=== PATIENT | female | born 1960 | race Caucasian/White ===

== ENCOUNTER → 2023-06-12 06:46 | Outpatient (REF) | payer BC, SELFPAY | LOC: WDC 06:46 | PROVIDERS: ATTENDING PHYSICIAN Nurse Practitioner Family | DX: Z12.31 Encounter for screening mammogram for malignant neoplasm of breast (principal) | CPT/HCPCS: 77063; 77067 ==

== ENCOUNTER → 2023-09-10 08:19 | Outpatient (REF) | payer BC, SELFPAY | LOC: RAD 08:19 | PROVIDERS: FAMILY PHYSICIAN Nurse Practitioner Family | DX: E05.20 Thyrotoxicosis with toxic multinodular goiter without thyrotoxic crisis or storm (principal); Z78.0 Asymptomatic menopausal state | CPT/HCPCS: 76536; 77080 ==

== ENCOUNTER 2023-09-16 16:35 | Observation (INO) | payer BC, SELFPAY ==
[2023-09-16] VITALS (7 sets, daily range): BP systolic 124–164; BP diastolic 61–99; BMI 28.5
[2023-09-16 08:24] LABS: % Basophils 0.5 % (0-2); % Eosinophils 0.9 % (0-6); % Immature Granulocytes 0.2 % (0-0.5); % Lymphocytes 18.6 % (20.5-51.1); % Monocytes 6.8 % (1.7-9.3); Absolute Eosinophils 0.1 10^3/uL (0-0.7); Absolute Lymphocytes 1.6 10^3/uL (1.2-3.4); Absolute Monocytes 0.6 10^3/uL (0.1-0.6); Absolute Neutrophils 6.3 10^3/uL (1.4-6.5); Hemoglobin 14.9 g/dL (12.0-16.0); Mean Corp Hgb Conc. 35.5 g/dL (33.0-37.0); Mean Corpuscular Hgb 31.1 pg (27.0-31.0); Mean Corpuscular Volume 87.7 fL (81.0-99.0); Mean Platelet Volume 10.2 fL (7.4-10.4); Nucleated Red Blood Cells % 0 %; Platelet Count 245 10^3/uL (130-400); Red Blood Cell Count 4.79 10^6/uL (4.20-5.40); White Blood Cell Count 8.6 10^3/uL (4.8-10.8)
--- NOTE | 2023-09-16 09:13 | ED.GENMED ---
History of Present Illness
General
Chief Complaint: Dizziness
Source: patient
Exam Limitations: none
Time Seen by Provider: 09/16/23 09:02
Travel History
Have you had any contact with someone who has COVID-19?: No
Do you have any symptoms of coronavirus? Fever > 100 degrees, chills, cough, shortness of breath, sore throat, loss of taste or smell, muscle aches, or headache?: No
History of Present Illness
History of Present Illness:
62-year-old female became vertiginous and dizzy in bed. Appears somewhat positional. Some general headache with this. No other neurologic symptoms. No history of same. Symptoms are moderate in nature. Started a few hours ago.
Past History
Past History
ED Past Medical History: HTN, Hypercholesterolemia and Other (Hyperthyroidism)
Social History
Tobacco: Non-smoker
Alcohol: Occasional
Review of Systems
Review of Systems
All Other Systems: Not applicable
Constitutional: Denies fever
Respiratory: Reports no symptoms
Phy Exam
Physical Exam
Physical Exam:
GENERAL: Alert and oriented in no apparent distress
EYE: Orbits normal. Extraocular muscles intact. No rotatory or bidirectional nystagmus. Questionable nystagmus to the right
NECK: Supple, no thyroid palpable. No carotid bruit
ENT: Pharynx without erythema
CARDIAC: Regular rate and rhythm without any obvious murmurs.
LUNGS: Clear breath sounds,normal
ABDOMEN: Soft, without focal tenderness or distention
NEUROLOGICAL: Alert and oriented , speech normal. Cranial nerves II through XII intact. [id number]-[id number] normal. No drift. Nqtr-cj-rpjc normal. Light touch intact
SKIN: Warm and dry, no rash or lesion, no discoloration, skin intact.
MUSCULOSKELETAL: No edema,no deformity.Good color
PSYCH: Normal and appropriate interaction.
Course
Orders/Labs/Results
Orders:
Orders
09/16/23 08:00
Complete Blood Count/With Diff Urgent
09/16/23 09:12
CT Head & Neck Angio W/wo IV Urgent
Comment:
Reason For Exam: Dizziness/headache
Cardiac Monitoring- Treatment ONCE
IV Insert/Care/Rem.- Treatment PRN
0.9% Sodium Chloride 1000 ml [Nss] 1,000 ml IV BOLUS
Meclizine [Antivert] 25 mg PO NOW STA
Ondansetron Injectable [Zofran] 4 mg IV NOW STA
Pulse Ox/cont/shift [RESP] Stat
Quantity: 1
09/16/23 09:13
Electrocardiogram (*1) Stat
Reason for Study: Other
Other Reason for Exam: neuro symptoms
EKG- Treatment ONCE
09/16/23 09:29
Comprehensive Metabolic Panel Routine
TSH Reflex To Free T4 Urgent
09/16/23 11:04
Acetaminophen 1000MG/100Ml [Ofirmev] 1,000 mg in 100 ml IV ONCE
Acetaminophen IV Indication:: ED Narcotic Naive Pt-ONCE
Abnormal Lab Results
09/16/23 09/16/23
08:00 09:29
MCH 31.1 H pg
(27.0-31.0)
Lymphocytes % 18.6 L %
(20.5-51.1)
Glucose 109 H mg/dl
(70-99)
09/16/23 08:00
09/16/23 09:29
Vital Signs
Initial and Last Documented VS:
Initial Vital Signs
Temp Pulse Resp BP Pulse Ox
97.7 F 102 18 164/99 100
09/16/23 07:48 09/16/23 07:48 09/16/23 07:48 09/16/23 07:48 09/16/23 07:48
Last Documented Vital Signs
Temp Pulse Resp BP Pulse Ox
97.7 F 102 18 164/99 100
09/16/23 07:48 09/16/23 07:48 09/16/23 07:48 09/16/23 07:48 09/16/23 07:48
MDM/Problems Addressed
Differential Diagnosis Includes:
Patient describing vertigo/disequilibrium. Not syncope. Inner ear versus central. More suspicious of inner ear. But not clear-cut at this time. Workup in progress
*Radiology
Radiology exam reviewed: radiology read reviewed (CT head neck angio negative)
*Pulse Oximetry
Patient hypoxic: no
*Critical Care Note
Total Time (30-74mins, 75-104mins- exclusive of procedures): Not Applicable
Data Reviewed
Review of Other/Old Records Reveals: Labs
Update Note
Update Note:
Patient is improved but still remains moderately symptomatic. Will admit for further care
ED Attending Note
-
Portions of this chart may have been created with voice recognition software.� Occasional wrong word or��sound alike� substitutions may have occurred due to the inherent limitations of voice recognition software.
Discharge Plan
Departure
Patient Disposition: Admit
Date of Disposition: 09/16/23
Time of Disposition: 11:24
Presentation/result/management discussed w/ accepting MD/DO: Hospitalist
Discharge Problem:
Severe vertigo
Prescriptions:
No Action
acetaminophen [Tylenol Extra Strength] 500 MG tablet
1,000 mg PO Q6HPRN PRN (Reason: pain)
ascorbic acid (vitamin C) [Vitamin C] 500 MG tablet
500 mg PO DAILY
methimazole 5 MG tablet
5 mg PO MOFR
methimazole 5 MG tablet
2.5 mg PO SUTUWETHSA
loratadine 10 MG tablet
10 mg PO DAILY
ezetimibe 10 MG tablet
10 mg PO HS
rosuvastatin [Crestor] 40 MG tablet
40 mg PO HS
multivitamin with folic acid [Tab-A-Ranjit] 1 TABLET tablet
1 tab PO DAILY
calcium phosphate-vitamin D3 1 EACH tablet,chewable
1 ea PO BID
Lactobacillus Combo No.10 [Probiotic] 1 EACH Capsule
1 ea PO DAILY
Magnesium 250 MG Tablet
250 mg PO DAILY
acetaminophen 325 MG tablet
650 mg PO Q4HPRN PRN (Reason: pain>2/10) 0RF
hydrocodone-acetaminophen 1 TABLET tablet
1 tab PO Q4HPRN PRN (Reason: pain>4/10 when taking PO) Qty: 20 0RF
propranolol 60 MG capsule,extended release 24 hr
60 mg PO DAILY Qty: 60 0RF
ascorbic acid (vitamin C) [Vitamin C] 500 MG tablet
500 mg PO DAILY 0RF
magnesium oxide 500 MG tablet
500 mg PO DAILY 0RF
methimazole 5 MG tablet
5 mg PO DAILY 0RF
docusate sodium 100 MG capsule
100 mg PO BID 0RF
ibuprofen 600 MG tablet
600 mg PO Q6HPRN PRN (Reason: moderate pain <4/10) 0RF
loratadine 10 MG tablet
10 mg PO DAILY 0RF
ezetimibe 10 MG tablet
10 mg PO HS 0RF
rosuvastatin 40 MG tablet
40 mg PO QPM 0RF
amoxicillin-pot clavulanate 1 TABLET tablet
1 tab PO Q12 Qty: 60 0RF
Rx Instructions:
take while drain is in place
hydrocodone-acetaminophen 1 TABLET tablet
1 tab PO Q4HPRN PRN (Reason: pain>4/10) Qty: 20 0RF
Rx Instructions:
take with daily stool softener
cefadroxil [Duricef] 500 MG capsule
500 mg PO BID Qty: 60 0RF
Rx Instructions:
take with daily probiotic
Referrals:
Jeannette Wilkinson CRNP [Family Provider] -
Interventions
Interventions:
*General Assessment Last Done: 09/16/23 07:48
*ED COVID-19 Vaccine History Last Done: 09/16/23 07:48
Discharge Date and Time
Print Language: LAO
[2023-09-16] MEDS: NSS 1000 IV (09:42)
[2023-09-16] MEDS: ZOFRAN 4 MG IV (09:42)
[2023-09-16 10:07] LABS: ALT (SGPT) 28 U/L (0-35); AST (SGOT) 29 U/L (14-36); Albumin 4.3 g/dl (3.5-5.0); Alkaline Phosphatase 62 U/L (38-126); Blood Urea Nitrogen 14 mg/dl (7-17); Calcium 9.4 mg/dl (8.4-10.2); Carbon Dioxide 27 mmol/L (22-30); Chloride 106 mmol/L (98-107); Glucose 109 mg/dl (70-99); Potassium 4.2 mmol/L (3.5-5.1); Sodium 138 mmol/L (135-145); Total Bilirubin 0.7 mg/dl (0.2-1.3); Total Protein 6.9 g/dl (6.3-8.2); eGFR > 60.00
[2023-09-16] MEDS: ANTIVERT 25 MG PO (10:13)
[2023-09-16 10:36] LABS: TSH Reflex To Free T4 1.17 uIU/ml (0.47-4.68)
[2023-09-16] MEDS: OFIRMEV 100 IV (11:24)
--- NOTE | 2023-09-16 13:38 | HPS.HSE ---
Family Physician
-
Family Physician: LEONID Quick
Chief Complaint
-
Dizziness
History of Present Illness
62-year-old female with past medical history of supraventricular tachycardia in the , sinus tachycardia (from history of decrease in hemoglobin, surgery, known hyperthyroidism, known sinus tachycardia and pain around the time of prior surgery)
hyperthyroidism, hypertension, hyperlipidemia, breast cancer status post mastectomy, personal history of melanoma, personal history of skin cancer and family history of cancer presented with dizziness. Patient said she was lying on the bed this
morning and when she opened her eyes, the room was spinning, the spinning did not resolve until she came to the emergency room. She also reported nausea and vomiting. She denied any chest pain, syncope, or any issues with ambulation.
Medical History
Past Medical History
Past Medical History: Reports Other (As per HPI above)
Past Surgical History: Reports Other (Mastectomy)
Social History
Tobacco: Former Smoker
Alcohol: Occasional
Drug: None
Family History
Family History: Not pertinent and Cancer
Allergies / Home Medications
Allergies reflects when Allergies were last updated in [facility].
Home Medications with original date entered in [facility]
Allergy/Medication List:
Allergies
Allergy/AdvReac Type Severity Reaction Status Date / Time
azithromycin Allergy GI upset Verified 09/16/23 07:51
erythromycin base Allergy GI Distress Verified 09/16/23 07:51
meperidine Allergy Anaphylaxis Verified 09/16/23 07:51
seasonal Allergy nasal Uncoded 09/16/23 07:51
congestion
Home Medications
acetaminophen 500 mg tablet (Tylenol Extra Strength) 1,000 mg PO DAILYPRN PRN mild pain 07/14/21
calcium phosphate 250 mg-vitamin D3 5 mcg (200 unit) chewable tablet 1 tab PO BID 07/14/21
ezetimibe 10 mg tablet 10 mg PO QPM 07/14/21
loratadine 10 mg tablet 10 mg PO DAILY 07/14/21
methimazole 5 mg tablet 2.5 mg PO DAILY 07/14/21
multivitamin with folic acid 400 mcg tablet (Tab-A-Ranjit) 1 tab PO DAILY 07/14/21
ascorbic acid (vitamin C) 500 mg tablet (Vitamin C) 500 mg PO DAILY 07/22/21
propranolol 60 mg capsule,24 hr,extended release 60 mg PO DAILY #60 caps 07/22/21
rosuvastatin 40 mg tablet 40 mg PO QPM 07/22/21
Lactobac no.2-Bifidobac no.1-S. thermo 112.5 billion cell capsule (Visbiome) 1 cap PO DAILY 09/16/23
carboxymethylcellulose sodium 1 % eye liquid gel drops 1 drp BOTH EYES DAILYPRN PRN dry eyes 09/16/23
ibuprofen 200 mg tablet 400 mg PO Q6H PRN mild pain 09/16/23
letrozole 2.5 mg tablet 2.5 mg PO QPM 09/16/23
lisinopril 2.5 mg tablet 2.5 mg PO DAILY 09/16/23
magnesium 250 mg tablet 250 mg PO DAILY 09/16/23
Review of Systems
-
A 12 point ROS was completed and negative except as noted: Yes
Physical Exam
Vital Signs
Vital Signs
Temp Pulse Resp BP Pulse Ox
97.7 F 102 18 164/99 100
09/16/23 07:48 09/16/23 07:48 09/16/23 07:48 09/16/23 07:48 09/16/23 07:48
Physical Exam
General: No Apparent Distress
HEENT: NormoCephalic
Respiratory: Clear
Cardiac: S1/S2 and Regular Rhythm
GI: Soft, Non Tender and Normal Bowel Sounds
Musculoskeletal: No Cyanosis and No Edema
Skin: Warm and Dry
Neuro: Awake, Alert, AO x 3, No Motor Deficits, Nonfocal/grossly intact and No Sensory Deficits
Psych: Calm and Intact Judgment/Insight
Laboratory Results
-
09/16/23 08:00
09/16/23 09:29
Laboratory Results
Total Bilirubin 0.7 mg/dl (0.2-1.3) 09/16/23:29
AST 29 U/L (14-36) 09/16/23:
ALT 28 U/L (0-35) 09/16/23:
Alkaline Phosphatase 62 U/L (38-126) 09/16/23:29
Impression/Plan
-
Assessment/Plan
Dizziness -- Suspected Migraine
-Orthostatic vital signs
-Check Vitamin B12 and Folate
-Electrolytes
-Telemetry monitoring
-Appreciate neurology
-Rizatriptan and Dimenhydrinate
Supraventricular tachycardia in the
Sinus tachycardia (from history of decrease in hemoglobin, surgery, known hyperthyroidism, known sinus tachycardia and pain around the time of prior surgery)
-Monitor on telemetry
Hyperthyroidism
-Continue home Methimazole
-Continue home Propranolol
Hypertension
-Continue home Lisinopril
Hyperlipidemia
-Continue home ezetimibe
-Continue home Rosuvastatin
Breast cancer status post mastectomy
Personal history of melanoma
Personal history of skin cancer
Family history of cancer
DVT PPx: Lovenox
Code Status: Full Code
[2023-09-16] MEDS: TORADOL 15 MG IV (13:59)
--- NOTE | 2023-09-16 14:11 | CON.NEURO ---
Neuro Assessment/Plan
Assessment
IMPRESSIONS/RECOMMENDATIONS:
Abrupt onset of dizziness with headache
With a prior history of migraine with aura and with onset of headache within 60 minutes of dizziness onset again makes it more likely that the symptoms are migraine with aura
Plan
Provide rizatriptan as additional therapy to remediate headache
Provide dimenhydrinate due to continued sense of dizziness
No clear indication patient would benefit from additional imaging
Physical therapy evaluations
Will continue to follow as needed. Thank you.
Consultation
Order
Date of Consultation: 09/16/23
Requesting Provider: Emergency department physician
Reason for Consult: Dizziness
Subjective/Objective
Subjective Data
Date of Service: September 16, 2023
Right-Handed
0620 awoke and dizzy.
Then improved mildly, not changed with movement, worsened again.
Did experience emesis. No weakness.
Had additional episodes while in this hospital's ED. Resolved symptoms.
No recent illnesses or other medical changes. No tinnitus, hearing changes.
Began having a headache soon after awakening, started diffusely across head then moved to behind the right eye, continued.
Usual headaches are started and worsening in past 2 years (2021) were diffuse, preceded by kaleidoscope visual changes 30 minutes then headache, no nausea/emesis, no photophobia, no phonophobia, duration of 4-6 hours. Also having milder headaches
lifelong, lasting few hours.
No prior episodes.
Objective Data
Vital Signs
Temp Pulse Resp BP Pulse Ox
36.5 C 102 18 164/99 100
09/16/23 07:48 09/16/23 07:48 09/16/23 07:48 09/16/23 07:48 09/16/23 07:48
Lab Results
09/16/23 08:00
09/16/23 09:29
Sodium 138 mmol/L (135-145) 09/16/23:
Potassium 4.2 mmol/L (3.5-5.1) 09/16/23:
BUN 14 mg/dl (7-17) 09/16/23:
Glucose 109 mg/dl (70-99) H 09/16/23:
Calcium 9.4 mg/dl (8.4-10.2) 09/16/23:
Patient Allergies
azithromycin Allergy (Verified 09/16/23 07:51)
GI upset
erythromycin base Allergy (Verified 09/16/23 07:51)
GI Distress
meperidine Allergy (Verified 09/16/23 07:51)
Anaphylaxis
seasonal Allergy (Uncoded 09/16/23 07:51)
nasal congestion
Review of Systems
-
History Source: Patient
All other systems: Reviewed and negative
EENT: Negative Hearing Loss or Swallowing Difficulty
Respiratory: Negative Trouble Breathing
Cardiac: Negative Chest Pain
Abdomen/GI: Negative Incontinence of Stool
Genitourinary: Negative Incontinence
Musculoskeletal: Back Pain; Negative Neck Pain
Neuro: Dizzy and Headache
Physical Exam
-
General: No Apparent Distress and Appears Stated Age
Eyes: OU Absent Papilledema, Round OU, [place] Conjunctivae and No Ptosis
HEENT: Anicteric and Moist Mucous Membranes
Neck: Full Range of Motion
Respiratory: No Dyspnea
Cardiac: No JVD
GI: Non-distended
Skin: Unremarkable
Extremities: No Clubbing, No Cyanosis and No Edema
Psych: Intact Judgement/Insight
Extended Neurological Exam
Mood & Affect: Mood Unremarkable and Affect Unremarkable
Attention Span & Concentration: Awake, Alert, Interactive and No Difficulty with 2 Step Request
Memory: Unremarkable
Tremor: Hand Tremor Absent and Head Tremor Absent
Speech: Quality Unremarkable and Quantity Unremarkable
Cranial Nerve II: Left Eye: Pupillary Reactivity Unremarkable, Pupillary Size Unremarkable and Visual Bowles Intact
Cranial Nerve II: Right Eye: Pupillary Reactivity Unremarkable, Pupillary Size Unremarkable and Visual Bowles Intact
Cranial Nerves III, IV, : Extraocular Movement: Extraocular Movement Full in all Directions and Other (No nystagmus)
Cranial Nerve VII: Facial Symmetry: Normal Facial Symmetry
Cranial Nerve VIII: Hearing: Unremarkable Hearing to Normal Conversational Volume
Cranial Nerve XI: Shoulder Shrug: Unremarkable
Cranial Nerve XII: Tongue Protusion: Midline
Muscle Strength, Overall: Full Throughout
Muscle Bulk & Tone: Bulk Unremarkable and Tone Unremarkable
Pronator Drift: No Drift in Upper Extremities
Deep Tendon Reflexes: Unremarkable Throughout
Touch Sensation: Unremarkable
Coordination: [id number]-[id number] Testing Unremarkable
Babinski Sign: Absent Bilaterally
Data Reviewed
-
CT-A: Report Reviewed
CT Head: Report Reviewed
Labs: Report Reviewed
Reviewed with: Physician, Nurse and Patient
Old Records: Summarized
Medications
-
Home Medications
�Medication �Instructions �Recorded
acetaminophen 500 mg tablet 1,000 mg PO DAILYPRN PRN mild pain 07/14/21
(Tylenol Extra Strength)
calcium phosphate 250 mg-vitamin 1 tab PO BID 07/14/21
D3 5 mcg (200 unit) chewable tablet
ezetimibe 10 mg tablet 10 mg PO QPM 07/14/21
loratadine 10 mg tablet 10 mg PO DAILY 07/14/21
methimazole 5 mg tablet 2.5 mg PO DAILY 07/14/21
multivitamin with folic acid 400 1 tab PO DAILY 07/14/21
mcg tablet (Tab-A-Ranjit)
ascorbic acid (vitamin C) 500 mg 500 mg PO DAILY 07/22/21
tablet (Vitamin C)
propranolol 60 mg capsule,24 60 mg PO DAILY #60 caps 07/22/21
hr,extended release
rosuvastatin 40 mg tablet 40 mg PO QPM 07/22/21
Lactobac no.2-Bifidobac no.1-S. 1 cap PO DAILY 09/16/23
thermo 112.5 billion cell capsule
(Visbiome)
carboxymethylcellulose sodium 1 % 1 drp BOTH EYES DAILYPRN PRN dry 09/16/23
eye liquid gel drops eyes
ibuprofen 200 mg tablet 400 mg PO Q6H PRN mild pain 09/16/23
letrozole 2.5 mg tablet 2.5 mg PO QPM 09/16/23
lisinopril 2.5 mg tablet 2.5 mg PO DAILY 09/16/23
magnesium 250 mg tablet 250 mg PO DAILY 09/16/23
Past History
Past History
ED Past Medical History: Arrthythmia (Sinus tachycardia), Cancer (Breast invasive lobular carcinoma right breast stage II, melanoma), HTN, Hypercholesterolemia, Other (Pneumonia 2000, colonic polyps) and Other (Hyperthyroidism)
ED Past Surgical History: and Other (Right mastectomy)
Social History
Tobacco: Non-smoker
Alcohol: Occasional
Personal:
Family History
Family History: Other (Reviewed and noncontributory)
[2023-09-16 15:34] LABS: Erythrocyte Sed Rate 5 mm/hour (0-20)
[2023-09-16 16:27] LABS: Ferritin 45.1 ng/ml (11.1-264.0)
[2023-09-16 16:58] LABS: Folate > 20.0 ng/ml (2.76-20); Vitamin B12 725 pg/ml (239-931)
[2023-09-16] MEDS: MAXALT MLT (ORALLY DISINTEGRATING) 10 MG PO (17:23)
[2023-09-16] MEDS: NSS (PRESERVATIVE FREE) 10 ML INJ (19:23)
[2023-09-16] MEDS: dimenhyDRINATE 50 MG IV (19:23)
[2023-09-16] MEDS: LOVENOX 40 MG SC (23:29)
[2023-09-16] MEDS: ZESTRIL 2.5 MG PO (23:30)
[2023-09-16] MEDS: TAPAZOLE 2.5 MG PO (23:30)
[2023-09-16] MEDS: INDERAL LA 60 MG PO (23:30)
[2023-09-16] MEDS: THERAGRAN 1 TABLET PO (23:30)
[2023-09-16] MEDS: ZETIA 10 MG PO (23:30)
[2023-09-16] MEDS: CRESTOR 40 MG PO (23:31)
[2023-09-16] MEDS: VITAMIN C 500 MG PO (23:31)
[2023-09-16] MEDS: CLARITIN 10 MG PO (23:31)
[2023-09-16] MEDS: VISBIOME 1 CAP PO (23:31)
[2023-09-16] MEDS: MAGNESIUM OXIDE 250 MG PO (23:31)
[2023-09-16] MEDS: FEMARA 2.5 MG PO (23:31)
--- NOTE | 2023-09-17 00:05 | PTCARENOTE ---
Pt transferred to unit from ED, pt ambulated into room with assistance. Pt oriented to unit, call russell within reach. Will continue with current plan.
[2023-09-17 03:00] VITALS: BP 144/85
--- NOTE | 2023-09-17 03:15 | PTCARENOTE ---
Pt woke up dizzy. Pt states the room is spinning. Pt states she is scared to move as it is making it worse. VSS 144/85 HR 100. Michael JAQUEZ notified. Will continue to monitor.
[2023-09-17] MEDS: ANTIVERT 25 MG PO (03:46)
[2023-09-17 07:00] VITALS: BP 137/81
[2023-09-17 07:34] LABS: Hematocrit 41.2 % (37.0-47.0); Hemoglobin 13.8 g/dL (12.0-16.0); Mean Corp Hgb Conc. 33.5 g/dL (33.0-37.0); Mean Corpuscular Hgb 30.3 pg (27.0-31.0); Mean Corpuscular Volume 90.5 fL (81.0-99.0); Mean Platelet Volume 10.8 fL (7.4-10.4); Platelet Count 237 10^3/uL (130-400); Red Blood Cell Count 4.55 10^6/uL (4.20-5.40); White Blood Cell Count 4.8 10^3/uL (4.8-10.8)
[2023-09-17 07:44] LABS: Blood Urea Nitrogen 17 mg/dl (7-17); Carbon Dioxide 25 mmol/L (22-30); Chloride 109 mmol/L (98-107); Estimated Creatinine Clearance 84 ml/min; Glucose 103 mg/dl (70-99); Magnesium 2.1 mg/dl (1.6-2.3); Potassium 4.3 mmol/L (3.5-5.1); Sodium 141 mmol/L (135-145); eGFR > 60.00
[2023-09-17] MEDS: TAPAZOLE 2.5 MG PO (08:37)
[2023-09-17] MEDS: CLARITIN 10 MG PO (08:37)
[2023-09-17] MEDS: MAGNESIUM OXIDE 250 MG PO (08:38)
[2023-09-17] MEDS: VITAMIN D3 (cholecalciferol) 5 MCG PO (08:39)
[2023-09-17] MEDS: OSCAL CAL 500 250 MG PO (08:39)
[2023-09-17] MEDS: VISBIOME 1 CAP PO (08:39)
[2023-09-17] MEDS: THERAGRAN 1 TABLET PO (08:39)
[2023-09-17] MEDS: VITAMIN C 500 MG PO (08:40)
[2023-09-17] MEDS: INDERAL LA 60 MG PO (08:43)
[2023-09-17] MEDS: ZESTRIL 2.5 MG PO (08:43)
[2023-09-17] MEDS: TYLENOL 1000 MG PO (08:49)
--- NOTE | 2023-09-17 09:51 | W.PN.NEURO.1 ---
Addendum entered and electronically signed by Gagandeep Jimenes MD 09/17/23 12:41:
I saw and evaluated the patient I reviewed the note by Joanne Luna agree with the findings the following comments:
62-year-old woman presenting with episode of short lasting dizziness occurring with left-sided head turn. No history of any hearing loss or tinnitus or unusual headaches or head or neck trauma.
Neurologic examination unremarkable
CTA of the head and neck no significant abnormality
Positive Ariel-Hallpike maneuver on the left for physical therapy
Assessment: Left-sided posterior canal benign paroxysmal positional vertigo
Recommendations
-2-3 times a day Jonny maneuver which should cure this, provided education and print out on how to perform
-Not seeing it be necessary to use meclizine
Original Note:
Today's Communication / Plan
-
.
Neuro Assessment/Plan
Assessment
IMPRESSIONS/RECOMMENDATIONS:
Abrupt onset of dizziness with headache
With a prior history of migraine with aura and with onset of headache within 60 minutes of dizziness
-CTA Head/Neck 09/16/23: No acute intracranial abnormality. No CTA evidence for high-grade stenosis or occlusion of the arterial vasculature in the head or neck.
I. Providence-Hallpike maneuver positive on the left side indicating left-sided BPPV.
II. Migraine with aura possibly overlapping BPPV symptoms.
Plan
-Patient provided Jonny maneuver instructions, should perform this 2-3 times per day for the next 5 or so days until symptoms resolve.
-Would avoid driving until she feels 100% back to her baseline for 24 hours.
-Okay to continue PRN dimenhydrinate for dizziness.
-No clear indication patient would benefit from additional neurological imaging at this time.
-PT evaluations.
-DVT prophylaxis.
-Will sign off. Please contact our Neurology service with any questions/concerns.
Subjective/Objective
Subjective Data
Date of Service: September 17, 2023
Patient reports two episodes of vertigo overnight. The first instance around 0200 this morning she turned onto her left side and had sudden onset spinning that lasted about one minute before improving. The second episode was the same duration but
she cannot recall a triggering factor. She just worked with PT and performed the self-jonny maneuver and reports feeling significantly improved now. She denies any headache, vision changes, nausea, numbness, weakness, chest pain, palpitations, and
shortness of breath.
Objective Data
Vital Signs
Temp Pulse Resp BP Pulse Ox
98.6 F 91 12 137/81 94
09/17/23 07:00 09/17/23 07:00 09/17/23 07:00 09/17/23 07:00 09/17/23 07:00
Lab Results
09/17/23 06:48
09/17/23 06:48
Sodium 141 mmol/L (135-145) 09/17/23 06:48
Potassium 4.3 mmol/L (3.5-5.1) 09/17/23 06:48
BUN 17 mg/dl (7-17) 09/17/23 06:48
Glucose 103 mg/dl (70-99) H 09/17/23 06:48
Calcium 9.0 mg/dl (8.4-10.2) 09/17/23 06:48
Vitamin B12 725 pg/ml (239-931) 09/16/23 09:29
Patient Allergies
azithromycin Allergy (Verified 09/16/23 07:51)
GI upset
erythromycin base Allergy (Verified 09/16/23 07:51)
GI Distress
meperidine Allergy (Verified 09/16/23 07:51)
Anaphylaxis
seasonal Allergy (Uncoded 09/16/23 07:51)
nasal congestion
Review of Systems
-
History Source: Patient
EENT: Negative Blurry Vision, Decreased Vision or Swallowing Difficulty
Respiratory: Negative Cough or Trouble Breathing
Cardiac: Negative Chest Pain or Palpitations
Abdomen/GI: Negative Nausea
Neuro: Dizzy; Negative Headache, Weakness, Numbness, Ataxia or Speech Problem
Physical Exam
-
General: Well Developed, Well Nourished and No Apparent Distress
Eyes: No Ptosis and PERRLA
HEENT: Normocephalic and Atraumatic
Neck: Full Range of Motion
GI: Non-distended
Extremities: No Clubbing, No Cyanosis and No Edema
Psych: Unremarkable
Extended Neurological Exam
Mood & Affect: Mood Unremarkable and Affect Unremarkable
Attention Span & Concentration: Awake, Alert, Interactive and No Difficulty with 2 Step Request
Memory: Unremarkable and Able to Recall
Tremor: Hand Tremor Absent and Head Tremor Absent
Involuntary Movement: None
Speech: Quality Unremarkable, Quantity Unremarkable and Rate of Production Unremarkable
Cranial Nerve II: Left Eye: Pupillary Reactivity Unremarkable, Pupillary Size Unremarkable and Visual Bowles Intact
Cranial Nerve II: Right Eye: Pupillary Reactivity Unremarkable, Pupillary Size Unremarkable and Visual Bowles Intact
Cranial Nerves III, IV, : Extraocular Movement: Extraocular Movement Full in all Directions
Cranial Nerve V: Facial Sensation: Intact to Light Touch
Cranial Nerve VII: Facial Symmetry: Normal Facial Symmetry
Cranial Nerve VIII: Hearing: Unremarkable Hearing to Normal Conversational Volume
Cranial Nerves IX, X: Palate Movement: Palate Elevation Symmetric
Cranial Nerve XI: Shoulder Shrug: Unremarkable
Cranial Nerve XII: Tongue Protusion: Midline
Muscle Strength, Overall: Full Throughout
Muscle Bulk & Tone: Bulk Unremarkable and Tone Unremarkable
Pronator Drift: No Drift in Upper Extremities and No Drift in Lower Extremities
Coordination: [id number] Testing Unremarkable
Data Reviewed
-
CT-A: Report Reviewed and Image Reviewed
Labs: Report Reviewed
Reviewed with: Physician and Patient
Medications
-
Active Medications
Generic Name Dose Route Start Last Admin
Trade Name Freq PRN Reason Stop Dose Admin
Acetaminophen 1,000 mg 05/12/24 22:20 09/17/23 08:49
Acetaminophen 500 Mg Tablet PO 10/14/23 22:19 1,000 mg
DAILYPRN PRN Administration
mild pain
Artificial Tears 1 drops 09/16/23 22:29
Artificial Tears Pf (Refresh) 10 Drop Droperette BOTH EYES 10/14/23 22:28
DAILYPRN PRN
dry eyes
Ascorbic Acid 500 mg 09/16/23 22:20 09/17/23 08:40
Ascorbic Acid 500 Mg Tablet PO 10/14/23 22:19 500 mg
DAILY JONO Administration
Bisacodyl 10 mg 09/16/23 22:20
Bisacodyl 10 Mg Rectal Suppository RECTAL 10/14/23 22:19
M56UTEE PRN
constipation
Calcium Carbonate 250 mg 09/17/23 08:00 09/17/23 08:39
Calcium Carbonate 500 Mg Tablet PO 10/15/23 07:59 250 mg
BID JONO Administration
Cholecalciferol 5 mcg 09/17/23 08:00 09/17/23 08:39
Cholecalciferol (Vitamin D3) 10 Mcg Tablet (400 Units) PO 10/15/23 07:59 5 mcg
BID JONO Administration
Ezetimibe 10 mg 09/16/23 22:20 09/16/23 23:30
Ezetimibe (Zetia) 10 Mg Tablet PO 10/14/23 22:19 10 mg
QPM JONO Administration
Enoxaparin Sodium 40 mg 09/16/23 22:20 09/16/23 23:29
Enoxaparin Sodium 40 Mg/0.4 Ml Syringe SC 10/14/23 22:19 40 mg
QPM JONO Administration
Ibuprofen 400 mg 09/16/23 22:20
Ibuprofen 200 Mg Tablet PO 10/14/23 22:19
Q6H PRN
mild pain
Lactobacillus/Bifidobacterium 1 cap 09/16/23 22:20 09/17/23 08:39
Lactobac/Bifidobac (Visbiome) PO 10/14/23 22:19 1 cap
DAILY JONO Administration
Letrozole 2.5 mg 09/16/23 22:20 09/16/23 23:31
Letrozole 2.5 Mg (Non-Form) Tablet PO 10/14/23 22:19 2.5 mg
QPM JONO Administration
Lisinopril 2.5 mg 09/16/23 22:20 09/17/23 08:43
Lisinopril 2.5 Mg Tablet PO 10/14/23 22:19 2.5 mg
DAILY JONO Administration
Loratadine 10 mg 09/16/23 22:20 09/17/23 08:37
Loratadine 10 Mg Tablet PO 10/14/23 22:19 10 mg
DAILY JONO Administration
Magnesium Oxide 250 mg 09/16/23 23:00 09/17/23 08:38
Magnesium Oxide 500 Mg Tablet PO 10/14/23 22:59 250 mg
DAILY JONO Administration
Meclizine HCl 25 mg 09/17/23 03:20 09/17/23 03:46
Meclizine 25 Mg Tablet PO 10/15/23 03:19 25 mg
Q8HPRN PRN Administration
dizziness
Methimazole 2.5 mg 09/16/23 22:20 09/17/23 08:37
Methimazole 5 Mg Tablet PO 10/14/23 22:19 2.5 mg
DAILY JONO Administration
Multivitamins Therapeutic 1 tablet 09/16/23 22:20 09/17/23 08:39
Multivitamin Tablet PO 10/14/23 22:19 1 tablet
DAILY JONO Administration
Polyethylene Glycol 17 grams 09/16/23 22:20
Polyethylene Glycol Powder 17 Grams Packet PO 10/14/23 22:19
DAILYPRN PRN
constipation
Propranolol HCl 60 mg 09/16/23 22:20 09/17/23 08:43
Propranolol Extended Release 60 Mg Capsule (24hr) PO 10/14/23 22:19 60 mg
DAILY JONO Administration
Rosuvastatin Calcium 40 mg 09/16/23 22:20 09/16/23 23:31
Rosuvastatin (Crestor) 40 Mg Tablet PO 10/14/23 22:19 40 mg
QPM JONO Administration
Senna/Docusate Sodium 1 tablet 09/16/23 22:20
Docusate W/Senna (Jessica-Colace) Tablet PO 10/14/23 22:19
BIDPRN PRN
constipation
Sodium Chloride 0 flush 09/16/23 22:00
Sodium Chloride 0.9% (Flush) Syringe IV 10/14/23 21:59
PER PROTOCOL JONO
Home Medications
�Medication �Instructions �Recorded
acetaminophen 500 mg tablet 1,000 mg PO DAILYPRN PRN mild pain 07/14/21
(Tylenol Extra Strength)
calcium phosphate 250 mg-vitamin 1 tab PO BID 07/14/21
D3 5 mcg (200 unit) chewable tablet
ezetimibe 10 mg tablet 10 mg PO QPM 07/14/21
loratadine 10 mg tablet 10 mg PO DAILY 07/14/21
methimazole 5 mg tablet 2.5 mg PO DAILY 07/14/21
multivitamin with folic acid 400 1 tab PO DAILY 07/14/21
mcg tablet (Tab-A-Ranjit)
ascorbic acid (vitamin C) 500 mg 500 mg PO DAILY 07/22/21
tablet (Vitamin C)
propranolol 60 mg capsule,24 60 mg PO DAILY #60 caps 07/22/21
hr,extended release
rosuvastatin 40 mg tablet 40 mg PO QPM 07/22/21
Lactobac no.2-Bifidobac no.1-S. 1 cap PO DAILY 09/16/23
thermo 112.5 billion cell capsule
(Visbiome)
carboxymethylcellulose sodium 1 % 1 drp BOTH EYES DAILYPRN PRN dry 09/16/23
eye liquid gel drops eyes
ibuprofen 200 mg tablet 400 mg PO Q6H PRN mild pain 09/16/23
letrozole 2.5 mg tablet 2.5 mg PO QPM 09/16/23
lisinopril 2.5 mg tablet 2.5 mg PO DAILY 09/16/23
magnesium 250 mg tablet 250 mg PO DAILY 09/16/23
[2023-09-17 10:06] VITALS: BP 122/68; PULSE 86
--- NOTE | 2023-09-17 10:49 | W.PN.HOSP.TC ---
Today's Communication/Plan
-
d/c
Assessment / Plan
Assessment / Plan
Gen: NAD, AAOx3.
Eyes: EOMI, PERRLA, no scleral icterus.
Neck: supple.
CV: RRR, +S1/S2, no m/r/g.
Resp: CTAB, no rales, wheezes, or rhonchi.
Abd: +BS, soft, NT, ND
Skin: No rashes.
Neuro: CN 2-12 intact, non-focal.
Psych: Normal mood and affect.
CTA head/neck: No acute intracranial abnormality. No CTA evidence for high-grade stenosis or occlusion of the arterial vasculature in the head or neck.
Dizziness:
-appreciate neurology, possibly due to Migraine headache although pt states he symptoms improved significantly after Ru maneuver
-s/p Rizatriptan and Dimenhydrinate
-CTA head/neck unremarkable as above
-B12/Folate/TSH normal
-Telemetry showed no concerning rhythms
Other problems:
Hyperthyroidism: cont Methimazole/Propranolol
Essential hypertension: Cont Lisinopril
Hyperlipidemia: cont statin/Zetia
h/o Breast cancer status post mastectomy
h/o melanoma
FULL/Lovenox
Medically cleared for discharge.
Total time spent on d/c = 31 min. This included today's physical exam, progress note, review of laboratory and diagnostic data, preparation of discharge documents and prescriptions, and discussions about the pt's hospital course and discharge plan
with the patient and other medical office asst involved in the patient's care.
Anticipated Discharge: Today
Subjective/Interval History
-
Date of Service: September 17, 2023
Dizziness has resolved.
Objective Data
-
Labs:
Laboratory Results
09/17/23
06:48
WBC 4.8
Hgb 13.8
Hct 41.2
Plt Count 237
Sodium 141
Potassium 4.3
Chloride 109 H
Carbon Dioxide 25
BUN 17
Creatinine 0.6
Glucose 103 H
Calcium 9.0
Vital Signs:
Vital Signs
Temp Pulse Resp BP Pulse Ox
98.6 F 91 12 137/81 94
09/17/23 07:00 09/17/23 07:00 09/17/23 07:00 09/17/23 07:00 09/17/23 08:30
--- NOTE | 2023-09-17 10:58 | CM ---
Patient seen bedside, initial assessment completed. Patient resides independently in a three story condo, one step to enter. Patient denies DME, VN, or SNF history. Patient confirms PCP Jeannette Wilkinson, [facility], confirms
prescription coverage. Patient denies food insecurities at home. Patient reports she is hopeful to discharge today and has transportation home. OBS form reviewed, signed, placed in patients chart. CM will continue to follow for discharge planning
needs.
Plan; home no needs anticipated.
[2023-09-17 11:00] VITALS: BP 111/71
--- NOTE | 2023-09-17 15:16 | W.DCSUMMARY ---
Discharge Summary
Discharge Data
Date of Admission: 09/16/23
Date of Discharge: 09/17/23
-
Pending Results: No
Hospital Course
Primary diagnoses:
Dizziness either due to migraine headache, benign paroxysmal positional vertigo, or both
Secondary diagnoses:
Hyperthyroidism
Essential hypertension
Hyperlipidemia
h/o Breast cancer status post mastectomy
h/o melanoma
Consultants:
Neurology
Imaging:
CTA head/neck: No acute intracranial abnormality. No CTA evidence for high-grade stenosis or occlusion of the arterial vasculature in the head or neck.
Hospital course: 62-year-old female presented yesterday with a chief complaint of dizziness sound in the H&P done on admission. CT angiogram of the head and neck above, unremarkable. Patient was seen in consultation by neurology. Initially it was
thought that her dizziness was possibly due to migraine headache. She did receive Rizatriptan and Dimenhydrinate. B12/Folate/TSH were normal. Telemetry showed no concerning rhythms. On the day of discharge patient had a positive Ariel-Hallpike
maneuver on the left. She underwent the Ru maneuver with improvement in her symptoms. She was discharged in medically stable condition.
Discharge Plan
-
Patient Disposition: Home (Routine Discharge)
Discharge Diagnosis/Procedures: Dizziness either due to migraine headache, benign paroxysmal positional vertigo, or both
Condition: Good
Diet: No restrictions
Activity: No restrictions
Driving Restrictions: As prior to admission
Bathing Restrictions: None
Referrals:
Jeannette Wilkinson CRNP [Family Provider] -
Prescriptions:
Continued
acetaminophen [Tylenol Extra Strength] 500 MG tablet
1,000 mg PO DAILYPRN PRN (Reason: mild pain)
methimazole 5 MG tablet
2.5 mg PO DAILY
loratadine 10 MG tablet
10 mg PO DAILY
ezetimibe 10 MG tablet
10 mg PO QPM
multivitamin with folic acid [Tab-A-Ranjit] 1 TABLET tablet
1 tab PO DAILY
calcium phosphate-vitamin D3 1 EACH tablet,chewable
1 tab PO BID
propranolol 60 MG capsule,extended release 24 hr
60 mg PO DAILY Qty: 60 0RF
ascorbic acid (vitamin C) [Vitamin C] 500 MG tablet
500 mg PO DAILY 0RF
rosuvastatin 40 MG tablet
40 mg PO QPM 0RF
ibuprofen 200 mg Tablet
400 mg PO Q6H PRN (Reason: mild pain)
magnesium 250 mg Tablet
250 mg PO DAILY
letrozole 2.5 mg Tablet
2.5 mg PO QPM
lisinopril 2.5 mg Tablet
2.5 mg PO DAILY
carboxymethylcellulose sodium 1 % Drops, Liquid Gel
1 drp BOTH EYES DAILYPRN PRN (Reason: dry eyes)
Visbiome 112.5 billion cell Capsule
1 cap PO DAILY
Discharge Orders:
Discharge Patient (As Directed); Ordered 09/17/23
Ordered By: Tim Mathews
Discharge Date and Time
Discharge Date/Time: 09/17/23 13:39
Print Language: CROATIAN
== END 2023-09-17 13:39 | disposition home or self-care (01) ==
LOC: 4 WEST ACU 16:35
PROVIDERS: Emergency Medicine; ADMITTING PHYSICIAN Hospitalist; ATTENDING PHYSICIAN Internal Medicine; CONSULT PHYSICIAN Psychiatry & Neurology Neurology; EMERGENCY PHYSICIAN Emergency Medicine; FAMILY PHYSICIAN Nurse Practitioner Family
DX: G43.109 Migraine with aura, not intractable, without status migrainosus (principal); H81.12 Benign paroxysmal vertigo, left ear; I10 Essential (primary) hypertension; R11.2 Nausea with vomiting, unspecified; E78.00 Pure hypercholesterolemia, unspecified; E05.90 Thyrotoxicosis, unspecified without thyrotoxic crisis or storm; R29.818 Other symptoms and signs involving the nervous system; J30.2 Other seasonal allergic rhinitis; Z88.1 Allergy status to other antibiotic agents; Z88.8 Allergy status to other drugs, medicaments and biological substances; Z90.11 Acquired absence of right breast and nipple; Z85.820 Personal history of malignant melanoma of skin; Z85.3 Personal history of malignant neoplasm of breast; Z87.19 Personal history of other diseases of the digestive system; Z87.891 Personal history of nicotine dependence; Z88.5 Allergy status to narcotic agent; Z80.9 Family history of malignant neoplasm, unspecified
CPT/HCPCS: 70496; 70498; 80048; 80053; 82607; 82728; 82746; 83735; 84443; 85025; 85027; 85652; 87070; 93005; 96361; 96374; 96375; 97112; 97163; 99285; G0378; J1240; Q9967

== ENCOUNTER → 2023-09-17 | Outpatient (REF) | payer BC, SELFPAY | LOC: DHSLP | PROVIDERS: ATTENDING PHYSICIAN Internal Medicine Critical Care Medicine; FAMILY PHYSICIAN Nurse Practitioner Family | DX: G47.33 Obstructive sleep apnea (adult) (pediatric) (principal) | CPT/HCPCS: 95800 ==

== ENCOUNTER → 2024-06-17 11:18 | Outpatient (REF) | payer MEDICARE, SELFPAY | LOC: WDC 11:18 | PROVIDERS: ATTENDING PHYSICIAN Nurse Practitioner Family | DX: Z12.31 Encounter for screening mammogram for malignant neoplasm of breast (principal) | CPT/HCPCS: 77063; 77067 ==